=== PATIENT | female | born 1995 | race American Indian/Alaskan Native ===

== ENCOUNTER 2017-03-04 08:22 | Outpatient (CLI) | payer OTHER ==
--- NOTE | 2017-03-04 09:38 | Ultrasound Report ---
BILATERAL BREAST ULTRASOUND: 03/04/17 CLINICAL: 21 year-old with bilateral breast lumps and pain. She initially described lumpiness in the upper left breast and on further questioning described lumpiness in the right breast. FINDINGS: Ultrasound of the right breast (including all four quadrants and the retroareolar area) demonstrated normal fibroglandular and fatty structures. No mass, cyst or shadowing. Ultrasound of the left breast (including all four quadrants and the retroareolar area) demonstrated normal fibroglandular and fatty structures. No mass, cyst or shadowing. I examined the patient and scanned an area of lumpiness at 12 o'clock in the left breast. I found no suspicious finding by ultrasound or by physical exam. IMPRESSION: Negative bilateral breast ultrasound. At this time, I don't think that a mammogram is warranted in this 21-year-old. Recommend clinical followup. BI-RADS CATEGORY: 1 -- Negative COMMENT: Patient follow-up letters are generated by our [employer] application.
== END 2017-03-04 08:23 | disposition home or self-care (01) ==
LOC: SPVWC 08:22
PROVIDERS: ATTEND Obstetrics & Gynecology
DX: N63 Unspecified lump in breast (principal); N64.4 Mastodynia